=== PATIENT | male | born 1960 | race Caucasian/White ===

== ENCOUNTER 2018-12-16 00:30 | Inpatient (IN) ==
[2018-12-16] MEDS ORDERED: Ipratropium/Albuterol Neb 3 ML IH PRN (03:54)
--- NOTE | 2018-12-16 04:33 | Internal Med History&Physical ---
Date of Encounter: 12/16/18 Time of Encounter: 04:32 Internal Medicine - H&P: HPI Chief complaint: sob Admitted From: Home Plans for Post Hospital Care: Home History of present illness: Tres Crowley is a 58 year old man with hypertension and coronary artery disease who reports previous stent placement presented to [facility] emergency room complaining of increasing shortness of breath over one week, dyspnea on exertion, orthopnea, leg edema and also stating his noticing his face was more swollen. He says he had been unable to catch his breath and could not lay flat. He also had some chest tightness. In the ER he was hemodynamically stable. Chest x-ray as reviewed by me showed significant pulmonary vascular congestion. BNP was >1500, troponin 0.08 and D-dimer 728 (age adjusted cutoff is 600). He was given a dose of furosemide with subsequent diuresis and improvement in his breathing. There was also a desire to perform a CT however he could not lay supine due to dyspnea so received 1 dose of enoxaparin. He was transferred here for further care. Vitals: Reviewed General: Well-appearing, NAD Skin: Warm and dry. HEENT: Moist mucous membranes. No conjunctivae pallor. Neck: No lymphadenopathy. No JVD. No carotid bruits. No palpable thyroid. Chest: Normal thoracic expansion. Reduced breath sounds. Heart: Normal S1 & S2; rhythmic. No rubs or murmurs. Abdomen: Non-distended, soft and non-tender to palpation. No peritoneal reaction. Extremities: No clubbing, cyanosis. Trace edema. No calf tenderness. Normal distal pulses. Neurological: Awake, alert and oriented to person, place and time. No focal deficits. Psych: Affect appropriate. Assessment/Plan 1. Respiratory distress: Signs and symptoms are suggestive of new-onset acute systolic heart failure given the increasing BURROWS, orthopnea, reduced exercise tolerance, reports of peripheral swelling and the noted pulmonary vascular congestion. It also goes in line with the significantly elevated BNP. Will place on furosemide 40mg BID, start low dose BB/ACEI and obtain an echo for evaluation. Unlikely to be pulmonary embolism given the buildup of symptoms and barely higher than cutoff dimer level. In any case the echo will give us a window to evaluate for right heart strain which would suggest it until he is able to lay supine for a CT if subsequently deemed necessary. 2. Troponin elevation: likely secondary to myocardial strain. No acute clinical or electrocardiographic signs of ACS. Will continue to monitor trend. 3. CAD: Reported history but he does not know what medications he takes at home. Will place him on aspirin and statin therapy. Monitor on telemetry. 4. Tobacco use: 5 minutes were spent counseling and educating the patient on this habit. manager managed backup services and resources were made available. Past Med Surg Social Fam HX - Past Medical History Medical history: coronary artery disease, hypertension Psychiatric history: anxiety - Past Surgical History Surgical History: angioplasty/stent, orthopedic, other (Cervical fusion) Additional surgical history: spine sx, stents - Social History Smoking Status: Current every day smoker Smokeless Tobacco Status: No Alcohol use: occasionally Drug use: none Internal Medicine - H&P: Meds Unable To Obtain [Unable to Obtain] 12/16/18 [History] Allergy/AdvReac Type Severity Reaction Status Date / Time No Known Allergies Allergy Verified 12/16/18 03:33 All Systems PM: A 10-system review of systems was performed and is negative for pertinent findings except as documented above in the HPI. Family history reviewed and found non-contributory. - Constitutional Vitals: Temp Pulse Resp BP Pulse Ox 97.9 F 89 18 148/90 95 12/16/18 04:01 12/16/18 04:01 12/16/18 04:01 12/16/18 04:01 12/16/18 04:01 Exam: . - Time Spent With Patient Total time spent is greater than 50% in coordination of care (as documented) at patient's floor/unit and/or counseling patient: Greater than 35 minutes
[2018-12-16] MEDS: *HR* Heparin 5,000 UNIT/ML VIAL SQ SCH ×3 (06:26→22:01)
[2018-12-16] MEDS ORDERED: Furosemide 40 MG/4 ML VIAL IVP SCH (09:00)
[2018-12-16] MEDS: Aspirin 81 MG TAB.CHEW PO SCH (09:28)
[2018-12-16 10:35] LABS: Heparin anti-factor XA UFH 0.26 IU/mL (0.30-0.70); INR 1.1; Prothrombin Time 12.1 Seconds (9.4-12.1)
[2018-12-16 10:38] LABS: Activated Partial Thrombo Time 37.8 Seconds (26.0-36.0)
--- NOTE | 2018-12-16 11:23 | Event Note ---
Date of Encounter: 12/16/18 Time of Encounter: 09:30 H&P reviewed. 58-year-old male with history of CAD status post PCI and hypertension was admitted for decompensated heart failure. No prior echo on system hence unable to tell whether it is systolic or diastolic. Also had minimally elevated troponin of 0.08 on presentation without EKG changes. Symptomatically better after IV Lasix, will continue IV diuretics, ASA, statin, bb, and check echocardiogram. Repeat troponin to ensure no ACS.
--- NOTE | 2018-12-16 12:58 | Electrocardiograph Report ---
[address] [place], [place] [address] Test Date: 2018-12-16 Pat Name: Tres Crowley Department: 112 Room: 2A62 Gender: M Supervisor Mapping: : 1960 Requested By: Priscila Elabor Order Number: [id number] Reading MD: Linda Hu Measurements Intervals [place] Rate: 90 P: 44 WV: 158 QRS: 67 QRSD: 114 T: 36 QT: 365 QTc: 413 Interpretive Statements SINUS RHYTHM WITH OCCASIONAL SUPRAVENTRICULAR PREMATURE COMPLEXES POSSIBLE LEFT ATRIAL ENLARGEMENT POSSIBLE INFERIOR MYOCARDIAL INFARCTION, PROBABLY OLD ANTEROSEPTAL MYOCARDIAL INFARCTION, OF INDETERMINATE AGE Electronically Signed On 12-16-2018 12:57:04 EDT by Linda Hu
[2018-12-16] MEDS: Acetaminophen 325 MG TABLET PO PRN (13:26)
[2018-12-16] MEDS ORDERED: Perflutren Lipid Microsphere 1.3 ML in 0.9 % Sodium Chloride 8.7 ML IVP ONE (13:52)
[2018-12-16] MEDS: Furosemide 40 MG/4 ML VIAL IVP SCH (16:57)
[2018-12-17] MEDS: *HR* Heparin 5,000 UNIT/ML VIAL SQ SCH ×3 (05:30→21:56)
[2018-12-17] MEDS: Aspirin 81 MG TAB.CHEW PO SCH (07:53)
[2018-12-17] MEDS: Acetaminophen 325 MG TABLET PO PRN (07:53)
[2018-12-17] MEDS: Furosemide 40 MG/4 ML VIAL IVP SCH ×2 (07:54→17:18)
--- NOTE | 2018-12-17 09:21 | Cardiology Consult Note ---
Date of Encounter: 12/17/18 Time of Encounter: 08:30 Assessment and Plan (1) Congestive heart failure Current Visit: Yes Status: Acute Acute systolic CHF exacerbation; patient describes NYHA class III-IV symptoms. Chronicity unclear. Significant symptom relief with IV lasix given in ED. TTE this admission shows LVEF 15-20% with severely dilated LV, severe global LV systolic dysfunction, moderate LVDD, and normal RV structure and function. TTE 08/2010--EF 50%. CXR demonstrated CHF, BNP 1556. Hx of CAD s/p PCI, poor outpatient follow-up. Recommend [facility] with possible PCI to r/o ischemic etiology, A/R/B discussed, he is agreeable to proceed. Change lopressor to Toprol XL, continue IV lasix. Add ACEi/ARB by discharge. Cardiac rehab. Continue IV lasix. Strict I&Os, daily weights, Na/fluid restricted diet. Will continue to follow. Qualifiers: Heart failure type: systolic Heart failure chronicity: acute Qualified Code(s): I50.21 - Acute systolic (congestive) heart failure (2) CAD (coronary artery disease) Current Visit: Yes Status: Acute Hx of CAD s/p PCI, >10 years ago. Plan as above, continue asa, statin, and BB. Qualifiers: Coronary Disease-Associated Artery/Lesion type: [place] artery [place] vs. transplanted heart: [place] heart Associated angina: without angina Qualified Code(s): I25.10 - Atherosclerotic heart disease of [place] coronary artery without angina pectoris (3) Elevated troponin I level Current Visit: No Status: Acute Mild, adynamic troponin elevation in the setting of acute CHF; suspect secondary to demand ischemia. Chest pain free upon exam. Continue asa, statin, and BB. Plan as above. Discussion w patient/family: The assessment and plan as outlined above was discussed with the patient and/or family members who expressed understanding and agreement. All questions were answered. Thank you for involving us in the care of your patient. Please call with any questions. The patient will be discussed and reviewed with Dr. Casillas; changes to be made accordingly. History of Present Illness Consult date: 12/17/18 Requesting physician: Brien Kang Consult reason: CHF Chief complaint: shortness of breath History of present illness: Mr. Crowley is a 58 year old male with PMHx significant of CAD s/p PCI, tobacco use, HLD, and HTN who presented to the ED 1 week history of worsening shortness of breath, weight gain, and increase in abdominal girth. Notes mild BLE edema. Upon arrival to [facility] ED he was given IV lasix which significantly improved symptoms. He was then transferred to [facility] for further evaluation. CXR demonstrated CHF, BNP 1556, and troponin was elevated at 0.08. Non-specific ECG changes noted. He has had poor outpatient follow-up with PCP and Cardiology, home medications are unclear. Upon exam he is lying flat and is chest pain free. He reports episode of chest discomfort--left sided, non-radiating--that lasted ~1 hr and resolved without intervention that occurred in the past month. Prior CV testing: TTE 08/2010: EF 50%, mildly dilated LV Past Med Surg Social Fam HX - Past Medical History Attestation: Yes The following information was validated with the patient. Source: patient Medical history: coronary artery disease, hyperlipidemia, hypertension Psychiatric history: anxiety - Past Surgical History Surgical History: angioplasty/stent, orthopedic, other Additional surgical history: spine sx, stents - Social History Smoking Status: Current every day smoker Packs per day: 1-2 Smokeless Tobacco Status: No Alcohol use: occasionally Drug use: none - Family History Father Living Status: Age at : 57 Cause of : ND Hx Family Cardiac Disorders: Yes (ND) Hx Family Cancer: Yes (melanoma) Mother Living Status: Hx Family Neurologic Disorders: Yes ([place]) Medications and Allergies Unable To Obtain [Unable to Obtain] 12/16/18 [History] Allergy/AdvReac Type Severity Reaction Status Date / Time No Known Allergies Allergy Verified 12/16/18 03:33 All Systems Review: The remainder of the systems were reviewed and are negative - Cardiovascular Cardiovascular: as per HPI Physical Examination Vital Signs, Last 4 Hours Temp Pulse Resp BP Pulse Ox 12/17/18 07:16 97.6 F 97 18 128/86 95 General: Conversant, No Apparent Distress HEENT: Atraumatic, Normocephaly, Mucus Membranes Moist Neck: No JVD, Normal carotid pulses Cardiac: Reg Rate and Rhythm, Normal S1 and S2, No Murmur Lungs: Other (Scattered rhonchi) Neuro: Alert and responsive, No focal deficits noted Abdomen: Soft, Non-Tender Skin: No rashes noted on visualized skin Musculoskeletal: No Chest Wall Tenderness Extremities: No Clubbing, No Cyanosis, No Edema, Normal Pulses Results Lab Results 12/16/18 12/16/18 09:44 09:44 INR 1.1 APTT 37.8 H Troponin I 0.07 H* Active Medications Acetaminophen (Tylenol) 650 mg PO Q6HR PRN PRN Reason: mild pain/fever Stop: 06/17/19 11:58 Last Admin: 12/17/18 07:53 Dose: 650 mg Documented by: Albuterol/Ipratropium (Duoneb) 3 ml IH [id number] PRN PRN Reason: Shortness Of Breath/Wheezing Stop: 06/17/19 03:55 Aspirin (Aspirin) 81 mg PO DAILY ALESHIA Stop: 06/17/19 09:01 Last Admin: 12/17/18 07:53 Dose: 81 mg Documented by: Atorvastatin Calcium (Lipitor) 40 mg PO HS ALESHIA Stop: 06/17/19 21:01 Last Admin: 12/16/18 22:00 Dose: 40 mg Documented by: Furosemide (Lasix) 40 mg IVP BIDDIURETIC ALESHIA Stop: 06/17/19 17:01 Last Admin: 12/17/18 07:54 Dose: 40 mg Documented by: Heparin Sodium (Porcine) (Heparin) 5,000 unit SQ Q8HCO ALESHIA Stop: 06/17/19 06:01 Last Admin: 12/17/18 05:30 Dose: 5,000 unit Documented by: Metoprolol Succinate (Toprol Xl) 25 mg PO DAILY ALESHIA Stop: 06/19/19 09:01 Metoprolol Tartrate (Lopressor) 12.5 mg PO BID ALESHIA Stop: 12/17/18 23:00 Last Admin: 12/17/18 07:54 Dose: 12.5 mg Documented by: - Imaging and Cardiology Echo: report reviewed Other Results: 12 hour tele: avg HR=88 SR. NSVT noted, max 4 beats - EKG Interpretation EKG results cardiology: personally reviewed Consult Discharge Plan - Plan Referrals: NONE,PCP [Primary Care Provider] -
[2018-12-17] MEDS ORDERED: 0.9 % Sodium Chloride 1,000 ML ONE (10:55)
[2018-12-17] MEDS ORDERED: *HR* Heparin 10,000 UNIT/10 ML VIAL ONE (10:56)
[2018-12-17] MEDS ORDERED: ISOVUE-370 200 ML INFUS..BTL ONE (10:56)
[2018-12-17] MEDS ORDERED: Nitroglycerin 1,000 MCG/10 ML VIAL IV ONE (10:56)
[2018-12-17] MEDS ORDERED: Heparin 1,000 UNITS/500 mL 500 ML ONE (10:56)
[2018-12-17] MEDS ORDERED: *HR* Midazolam HCl 2 MG/2 ML VIAL ONE (11:08)
[2018-12-17] MEDS ORDERED: *HR* FentaNYL (PF) 100 MCG/2 ML VIAL ONE (11:08)
--- NOTE | 2018-12-17 11:16 | Pre-Sedation Evaluation ---
Pre-sedation evaluation - Pre-sedation checklist Date of procedure: 12/17/18 Procedure: cardiac cath Recent Vitals: Last Vital Signs Temp 97.6 F 12/17/18 07:16 Pulse 97 12/17/18 07:16 Resp 18 12/17/18 07:16 BP 128/86 12/17/18 07:16 Pulse Ox 95 12/17/18 07:16 H&P (including ROS) documented in medical record: Yes Previous reaction to sedatives/anesthetics: No Dietary Status: NPO after Midnight ASA Classification *see protocol: CLASS II-Mild systemic disease Cardiac Registry (Cardio Only) - Functional Capacity Functional Capacity: >=4 METS without symptoms - Clincal Frailty Scale Clinical Frailty Scale: Managing Well
--- NOTE | 2018-12-17 12:20 | Invasive Diagnostic Lab Proc ---
Name: Tres Crowley Date of Study: 12/17/2018 Date: 1960 Ht: 66.9in Medical Record#: [id number] Age: 58 Wt: 149.91lb Gender: Male BSA: 1.79 Order #: [id number] BMI: 23.53 Physicians Procedure Physician: Edith Escalona MD Referring MD: Referring MD: Staff Name Position Time In Neftali Wesley RN Monitor 11:04 AM Manfred Kern RT (R) Scrub 11:04 AM Linda Abdullahi RT (R) Scrub 11:05 AM Pablo Robertson RN Nurse 11:06 AM Jolynn Duckworth RT RT 11:07 AM Procedures Performed Procedure L HRT ARTERY/VENTRICLE ANGIO Pre-Procedure Checklist Informed consent is complete signed and on chart. H&P is on chart. ID band is on and ID verified with patient. Patient NPO for procedure The procedure was described for the patient and questions were answered. ECG is on chart. Plan of Care Patient will tolerate the procedure without complications. Adequate level of comfort will be maintained. Hemodynamics will remain stable Patient will recover from procedure without complications. Respiratory function will be maintained. Cardiac rhythm will remain stable. Patient temperature will be maintained. Patient and/or family have verbalized understanding of the procedure. Patient Education Chief Complaint/Reason for Test: Cardiac Cath Developmental Category: Adult (18-64 years) Developmentally Appropriate for Age: Yes Learning Barriers: None Education Needs: Procedure Education Method: Verbal Information Taught: Cardiac Cath Educational Evaluation: Able to repeat information Intravenous Access Time IV Size Location DC'd Fluid/Drip Rate Units RN 20g 1 07/25" Patent On Arrival 0.9NaCl ml/hr Allergies NKDA No Known Allergies Vital Signs Time BP (mmHg) HR (bpm) O2 Sat. RR (bpm) LOC 11:05 AM / % 5 = Fully awake and oriented or at pre-proc level 11:05 AM / % 4 = Oriented but drowsy 11:08 AM 137 / 87 82 92 % 11:13 AM 119 / 91 82 97 % 20 11:18 AM 124 / 89 73 95 % 18 11:23 AM 108 / 62 82 93 % 29 11:28 AM 112 / 83 83 92 % 15 11:33 AM 124 / 85 82 93 % 14 11:42 AM 122 / 86 81 93 % 16 5 = Fully awake and oriented or at pre-proc level 12:00 PM 117 / 80 82 93 % 16 5 = Fully awake and oriented or at pre-proc level Procedural Medications Time Medication Dose Units Method Given By 11:06 AM Oxygen 2 L/min nasal cannula Sparkle Sánchez RN 11:09 AM Versed 1 mg Intravenous Sparkle Sánchez RN 11:09 AM Fentanyl 50 mcg Intravenous Sparkle Sánchez RN 11:20 AM Lidocaine 2% 10 ml Subcutaneous Edith Escalona MD ASA Classification: CLASS II- Mild systemic disease (i.e. well-controlled diabetes, hypertension, asthma, cigarette smoking) [place] Score Preprocedure Postprocedure Activity 2- Moves 4 extremities sustained head lift Activity 2- Moves 4 extremities sustained head lift Circulation 2- SBP +/= 20 points of pre-anesthetic level Circulation 2- SBP +/= 20 points of pre-anesthetic level Consciousness 2- Awake and alert oriented x 3 Consciousness 2- Awake and alert oriented x 3 O2 Saturation 2- Able to maintain O2 satruation of 92% on room air O2 Saturation 2- Able to maintain O2 satruation of 92% on room air Respiratory 2- Able to deep breathe and cough well Respiratory 2- Able to deep breathe and cough well Total Score 10 Total Score 10 Contrast Agent: Isovue Diagnostic Contrast: 41 ml Total Contrast: 41 ml Fluoro Dose: 22 mGy Procedure Log Time Note Enter By 11:00 AM CathStat 11:04 AM Pt arrived to pharmaceutical laboratory technician 2 at 11:04 oparker 11:04 AM Wesley Lindsay RN Position: Monitor Time in: 11:04 oparker 11:04 AM Manfred Kern RT (R) Position: Scrub Time in: 11:04 oparker 11:05 AM Physician arrived 11:05 oparker 11:05 AM Corbin completed oparker 11:05 AM Sign in performed according to hospital policy. Informed consent was obtained. oparker 11:05 AM Procedure start 11:05 oparker 11:05 AM Patient charges- Angio tray pack, Navilyst 3mm J, Pulse Oximetry and ACIST tubing and transducer oparker 11:05 AM Time: 11:05 Patient comfortable and pain free: Yes oparker 11:05 AM Time: 11:05LOC: 5 = Fully awake and oriented or at pre-proc level oparker 11:05 AM Linda Abdullahi RT (R) Position: Scrub orientee Time in: 11: oparker 11:06 AM Pablo Robertson RN Position: Nurse Time in: 11: oparker 11: AM Time: 11:06 Oxygen on at 2 L/min per nasal cannula by Sparkle Sánchez RN oparker 11:07 AM Jolynn Duckworth RT Position: RT Time in: : oparker 11:07 AM Hair removed from procedure site in holding area using clippers. Bilateral groin prepped with Chloraprep by Jolynn Duckworth RT, then patient was draped. Skin intact. oparker 11: AM Vitals capture started with the following parameters, Patient=Adult, Interval=5 min, Initial Qazdlebp=474 mmHg, Deflation Rate=5 mmHg, Cuff placed on Left Arm 11: AM Recorded ECG: HR=86 Condition=Condition 1 11:08 AM HR=82 bpm, ULCV=723/87 mmhg, SpO2=92.0 %, Comment=NSR 11: AM Time: 11: Versed 1 mg Intravenous Given by Sparkle Sánchez RN oparker 11: AM Time: 11:09 Fentanyl 50 mcg Intravenous Given by Sparkle Sánchez RN oparker 11:13 AM HR=82 bpm, RRTR=229/91 mmhg, SpO2=97.0 %, Resp=20 B/min, EtCO2=33 mmHg, Comment=NSR 11:15 AM Pressure channel 1 zeroed. 11:18 AM HR=73 bpm, JNKD=525/89 mmhg, SpO2=95.0 %, Resp=18 B/min, EtCO2=32 mmHg, Comment=NSR 11:18 AM ASA Class CLASS II- Mild systemic disease (i.e. well-controlled diabetes, hypertension, asthma, cigarette smoking) oparker 11:19 AM Time out was performed according to hospital policy. Conscious sedation and anesthesia was achieved (see medication log with in this report above) oparker 11:20 AM Time: 11:05LOC: 4 = Oriented but drowsy oparker 11:20 AM Time: 11:05 Patient comfortable and pain free: Yes oparker 11:20 AM Time: 11:20 10 ml Lidocaine 2% to right groin Subcutaneous Given by Edith Escalona MD oparker 11:20 AM Micro-Introducer Kit utilized for sheath placement oparker 11:21 AM Pressure channel 1 zeroed. 11:23 AM Access obtained by percutaneous puncture. 6Fr 10cm Terumo [place] sheath placed in right Femoral artery. [id number] oparker 11:23 AM HR=82 bpm, UUCR=851/62 mmhg, SpO2=93.0 %, Resp=29 B/min, EtCO2=11 mmHg, Comment=NSR 11:23 AM 0.035 145cm Navilyst 3mmJ wire [id number] oparker 11:23 AM 5Fr FR 4 catheter inserted over the wire DNC oparker 11:24 AM RCA angiography performed in multiple views. oparker 11:25 AM Recorded Pressure: Ao, HR=84, Condition=Condition 1 (Aorta) Ao 102/73/86 11:26 AM Catheter removed oparker 11:27 AM 5Fr FL 4 catheter inserted over the wire DN oparker 11:27 AM LCA angiography performed in multiple views. oparker 11:27 AM Recorded Pressure: Ao, HR=84, Condition=Condition 1 (Aorta) Ao 101/76/87 11:28 AM HR=83 bpm, UBZE=781/83 mmhg, SpO2=92.0 %, Resp=15 B/min, EtCO2=26 mmHg, Comment=NSR 11:29 AM Catheter removed oparker 11:30 AM Catheter crossed the aortic valve and was selectively placed in the left ventricle. Pressures recorded on pullback for left heart catheterization. oparker 11:31 AM Recorded Pressure: Ao, HR=82, Condition=Condition 1 (Aorta) Ao 102/10/50 11:31 AM Recorded Pressure: LV, HR=80, Condition=Condition 1 (Left Ventricle) LV 108/18/22 11:32 AM 5Fr Pigtail catheter inserted over the wire DNC oparker 11:32 AM Catheter removed oparker 11:32 AM Wire removed oparker 11:33 AM Procedure completed at 11:33 12/17/2018 oparker 11:33 AM Did you address KAHLIL flow and Dominance? YesCoronary Dominance: right oparker 11:33 AM HR=82 bpm, CWTB=461/85 mmhg, SpO2=93.0 %, Resp=14 B/min, Comment=NSR 11:33 AM Sign out completed: Radiation Dose 171.59 mGy, 22.2 Gy/cm2 Fluoro Time: 2.3 Isovue 370 - 200ml contrast 41 ml given by Edith Escalona MD. Complications: None. 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 Sedation minutes 24. Cardiac Rehab Consult needed: No. Confirmed administered medications: Yes oparker 11:34 AM Conversation between Interventionalist and CT Surgeon. oparker 11:35 AM Sheath left in place to be pulled on floor/holding areaV+Pad oparker 11:35 AM Estimated Blood Loss: minimal oparker 11:35 AM Post ECG NSR oparker 11:35 AM Post Blood Pressure 124/85 oparker 11:35 AM 11:35 Post Pulses Bilateral DP 2+ oparker 11:36 AM Information taught Cardiac Cath oparker 11:36 AM Education needs Procedure, Plan of Care, and Disease Process oparker 11:36 AM Learning barriers :None oparker 11:36 AM Education Methods Verbal oparker 11:36 AM Education evaluation Able to repeat information oparker 11:36 AM Site status No bleeding/hematoma - Rt Groin as reported by Manfred Kern RT (R) at 11:36 oparker 11:36 AM Opsite applied oparker 11:36 AM Family placed in consult room. oparker 11:38 AM Report given to Denzel DELA CRUZ Pt taken to Holding room Room #4. 11:38 oparker 11:38 AM Patient out of room: 11:38 oparker 11:39 AM Lesion found in Distal LMCA. Pre Stenosis: 55 Pre KAHLIL Flow: oparker 11:39 AM Lesion found in Proximal LAD. Pre Stenosis: 100 Pre KAHLIL Flow: oparker 11:39 AM Lesion found in Mid LAD. Pre Stenosis: 100 Pre KAHLIL Flow: oparker 11:39 AM Lesion found in Mid Circumflex. Pre Stenosis: 20 Pre KAHLIL Flow: oparker 11:39 AM Left Main Coronary Artery with 55% stenosis oparker 11:40 AM Proximal Left Anterior Descending Coronary Artery with 100% stenosis. If graft is supplying this territory, 0 % stenosis. oparker 11:40 AM Mid/Distal Left Anterior Descending Coronary Artery and diagonal branches with 100% stenosis. If graft is supplying this area, 0 % stenosis oparker 11:40 AM Circumflex, Obtuse Marginal, Left Posterior Descending, and Left Posterolateral Coronary Arteries with 20 % stenosis. If graft is supplying this area, 0 % stenosis yola 11:53 AM Marta Tolbert RT at bedside. Right femoral artery sheath pulled. Manual pressure being held with Vpad. kwramsey 12:08 PM Hemostasis obtained to right femoral artery. Dressing applied with Vpad. Patient instructed on post sheath pull. Patient verbalized understanding. kwramsey 12:09 PM Delay to floor Bed availability kwitte 12:10 PM Report given to Margoth DELA CRUZ Pt taken to Holding room Room #2a62. 12:10 kwitte 12:10 PM Complications: None kwitte 12:10 PM Patient out of room: 12:10 kwramsey Complications Complication None None Hemodynamics Pressures Site Systolic/A Wave Diastolic/V Wave Mean AO 102 73 86 AO 101 76 87 AO 102 10 50 LV 108 18 22 Post Procedure Information Blood Pressure: 124/85 mmHg Rhythm: NSR Post procedural instructions were given Surgery consult for CABG Closure Device Time Device Success/Fail Manual Compression Site Checks Time Location Status Staff Sheath In? Note 11:36 AM Rt Groin No bleeding/hematoma Manfred Kern RT (R) Yes 11:44 AM Rt Groin No bleeding/ No Hematoma Denzel Ariza RN Yes 12:00 PM Rt Groin No bleeding/ No Hematoma Denzel Ariza RN Pulses Time Site Pre-Procedure Post-Procedure Note Bilateral DP & PT 2+ Bilateral radial 2+ 11:35:00 AM Bilateral DP 2+ 12/17/2018 11:42:00 AM Bilateral DP 2+ 12/17/2018 12:00:00 PM Bilateral DP 2+ Updated by Denzel Ariza RN on 12/17/2018 12:11:32 PM Denzel Ariza RN electronically signed on 12/17/2018 12:12:06 PM with status of Final
--- NOTE | 2018-12-17 14:10 | Internal Med Progress Note ---
Hospitalist Progress Note - Encounter Date of Encounter: 12/17/18 Time of Encounter: 14:08 - Subjective Interval History: Patient seen and examined at bedside. Patient states that he feels good today. He denies any symptoms. He is chest pain-free. Denies any shortness of breath. - Exam Vitals: Temp Pulse Resp BP Pulse Ox 97.6 F 97 18 128/86 95 12/17/18 07:16 12/17/18 07:16 12/17/18 07:16 12/17/18 07:16 12/17/18 07:16 Exam: Gen.: Oriented 3, no acute distress Heart: Regular rate and rhythm, no murmurs, rubs, gallops Lungs: Clear to auscultation bilaterally, no rales, rhonchi, wheezes - Assessment and Plan (1) Acute systolic heart failure Current Visit: Yes Status: Acute Assessment and Plan: Echocardiogram reviewed that shows EF of 15-20%. Appreciate cardiology consultation and patient underwent left heart catheter today that found signi ficant coronary artery disease, likely cause of patient's systolic heart failure. Beta osito started, patient will require claudine inhibitor/ARB at discharge. Continue IV Lasix at 40 mg twice a day. (2) CAD (coronary artery disease) Current Visit: Yes Status: Acute Assessment and Plan: Patient underwent left heart catheterization today, final report pending but did discuss with cardiology who feeling patient may need CABG. Cardiothoracic surgery consult pending. Chest pain-free at this time. (3) DVT prophylaxis Current Visit: Yes Status: Acute Assessment and Plan: Heparin 5000 units subcutaneous every 8 hours. - Time Spent with Patient Total time spent is greater than 50% in coordination of care (as documented) at patient's floor/unit and/or counseling patient: Internal Medicine: Result - ABG Interpretation ABG results: PT/INR, D-dimer PT 12.1 Seconds (9.4-12.1) 12/16/18 09:44 - Impressions Impressions Echocardiogram 12/16/18 03:52 Impressions: LVEF 15-20%. Severely dilated left ventricle. Severe global left ventricular systolic dysfunction. Moderate left ventricular diastolic dysfunction. There is no LV thrombus. Normal right ventricular structure and function. Mild-moderate mitral regurgitation. Mild pulmonary hypertension. Left Ventricular Wall Motion: Rest Echo Findings The apex, apical inferior, mid inferior, basal inferior, apical anterior, mid anterior, basal anterior, apical septal, mid inferior septal, basal inferior septal, apical lateral, mid anterior lateral, basal anterior lateral, mid anterior septal, mid inferior lateral, basal anterior septal and basal inferior lateral sanderson were hypokinetic. Findings: Study Quality * Technically adequate exam. ECG Findings * Normal sinus rhythm. Left Ventricle * LVEF 15-20%. * Severely dilated left ventricle. * Severe global left ventricular systolic dysfunction. * Moderate left ventricular diastolic dysfunction. * There is no LV thrombus. Right Ventricle * Normal right ventricular structure and function. Left Atrium * Moderately dilated left atrium. Right Atrium * Mildly dilated right atrium. Interatrial Septum * Interatrial septum not well evaluated. Aortic Valve * Mildly sclerotic aortic valve leaflets. * No aortic regurgitation. * No aortic stenosis. Mitral Valve * Mildly thickened mitral valve leaflets. * Mild-moderate mitral regurgitation. * No mitral stenosis. Tricuspid Valve * Normal tricuspid valve structure and function. * Trace tricuspid regurgitation. * Mild pulmonary hypertension. Pulmonic Valve * Pulmonic valve is not well visualized. * Trace pulmonic regurgitation. Aorta * Normally sized aortic root. Pericardium * The pericardium appears normal. IVC * Normal IVC dimensions and inspiratory collapse. Pulmonary Artery * Pulmonary artery not well visualized. Consult Discharge Plan - Plan Referrals: NONE,PCP [Primary Care Provider] - (2) CAD (coronary artery disease) Qualifiers: Coronary Disease-Associated Artery/Lesion type: [place] artery [place] vs. transplanted heart: [place] heart Associated angina: without angina Qualified Code(s): I25.10 - Atherosclerotic heart disease of [place] coronary artery without angina pectoris
--- NOTE | 2018-12-17 14:18 | Cardiothoracic Consult Note ---
Date of Encounter: 12/17/18 Time of Encounter: 14:01 Assessment and Plan (1) CAD (coronary artery disease) Current Visit: Yes Status: Acute The patient is a 58-year-old hypertensive man with hypercholesterolemia known CAD was transferred to [facility] from [facility] with a diagnosis of congestive heart failure. He underwent a transthoracic echocardiogram which revealed an LVEF 15-20% with severe left ventricular dilatation and severe left ventricular systolic dysfunction. Cardiac catheterization revealed severe 3 vessel CAD. In particular, the patient has a 50-60% distal left main lesion, a completely occluded proximal LAD which fills distally via left to left collaterals, a 20-30% mid LCx lesion, and a completely occluded proximal RCA which fills distally via [id number] collaterals. He has been recommended for possible high risk CABG. The patient should undergo myocardial viability study to determine whether the anterior wall would benefit from revascularization. If the patient has viable myocardium and is a surgical candidate, he should undergo his procedure at the [facility] in case the patient needs left ventricular assist postoperatively. The assessment and plan as outlined above was discussed with the patient and/or family members who expressed understanding and agreement. All questions were answered. Qualifiers: Coronary Disease-Associated Artery/Lesion type: [place] artery [place] vs. transplanted heart: [place] heart Associated angina: without angina Qualified Code(s): I25.10 - Atherosclerotic heart disease of [place] coronary artery without angina pectoris - History of Present Illness Consult date: 12/17/18 Requesting physician: Edith Escalona Consult reason: CABG evaluation Chief complaint: Shortness of breath, dyspnea on exertion, lower extremity edema History of present illness: Mr. Crowley is a 58 year old hypertensive man with hypercholesterolemia and known CAD. His cardiac history dates back to which time he suffered a myocardial infarction and required PCI with coronary stent placement (unknown vessels). He did well during the ensuing years, but would occasionally experience exertional, nonradiating substernal chest pain and shortness of breath. He is not medically compliant and has not seen a physician and several years. During the last 1-2 weeks however, he has had progressive shortness of breath, dyspnea exertion, and lower extremity edema. He awoke one morning with extensive facial swelling and was evaluated at [facility]. During the evaluation he was noted to have elevated BNP levels and a chest x-ray which showed increased pulmonary vascularity consistent with congestive heart failure. He was treated medically and transferred to [facility] for further care. The patient underwent a transthoracic echocardiogram yesterday which revealed an LVEF 15-20% with a severely dilated left ventricle. Mild to moderate mitral regurgitation was also noted as was mild pulmonary hypertension. He underwent cardiac catheterization today and was found to have severe 3 vessel CAD. In particular, the patient has a 50-60% distal left main lesion, a completely occluded proximal LAD which fills distally via left to left collaterals, a 20- 30% mid LCx lesion, and completely occluded proximal RCA which fills distally via [id number] collaterals. I have been asked to evaluate the patient for possible high risk CABG. Past Med Surg Social Fam HX - Past Medical History Medical history: CHF, coronary artery disease, hyperlipidemia, hypertension, peripheral artery disease Psychiatric history: anxiety - Past Surgical History Surgical History: angioplasty/stent, appendectomy, orthopedic, other (Right wrist ORIF) Additional surgical history: spine sx, stents - Social History Smoking Status: Current every day smoker Packs per day: 2PPD x 45YRS Smokeless Tobacco Status: No Alcohol use: occasionally Drug use: none Occupational status: unemployed Current living situation: Home - Independent Activity Level: Independent ambulation Recent Out of Country Travel Within the Last 8 Weeks: No Exposure or Possible Exposure to Illness During Travel: No - Family History Father Living Status: Age at : 57 Cause of : [place] Hx Family Cardiac Disorders: Yes ([place]) Hx Family Cancer: Yes (melanoma) Mother Living Status: Hx Family Neurologic Disorders: Yes ([place]) Medications and Allergies Aspirin/Caffeine [Bc Powder Packet] 1 each PO BID PRN 12/17/18 [History] Allergy/AdvReac Type Severity Reaction Status Date / Time No Known Allergies Allergy Verified 12/16/18 03:33 All Systems Review: The remainder of the systems were reviewed and are negative Physical Examination General: Conversant, No Apparent Distress HEENT: Atraumatic Neck: No JVD Cardiac: Reg Rate and Rhythm, Normal S1 and S2, No Murmur Lungs: Normal Breath Sounds Neuro: Alert and responsive, No focal deficits noted, Motor nerves intact, Sensory nerves intact Vascular: Normal capillary refill Abdomen: Soft, Non-tender Skin: No rashes noted on visualized skin Musculoskeletal: No Chest Wall Tenderness Extremities: No Clubbing, No Cyanosis, No Edema Consult Discharge Plan - Plan Referrals: NONE,PCP [Primary Care Provider] -
[2018-12-17 15:06] LABS: BUN/Creatinine Ratio 20 (6-26); Blood Urea Nitrogen 17 mg/dL (8-23); Calcium 9.8 mg/dL (8.6-10.3); Carbon Dioxide 22 mEq/L (23-29); Chloride 101 mEq/L (98-107); Glucose 154 mg/dL (70-105); Magnesium 1.9 mg/dL (1.6-2.6); Osmolality,Calculated 287 (280-300); Potassium 4.3 mEq/L (3.5-5.1); Sodium 136 mEq/L (136-145); eGFR For Non-African Americans > 60 (> 60)
[2018-12-17 15:22] LABS: Basophils # 0.1 K/mcL (0.0-0.2); Basophils % 0.6 %; Eosinophils # 0.2 K/mcL (0.0-0.6); Eosinophils % 2.2 %; Hematocrit 47.9 % (37.5-50.1); Immature Granulocytes % 0.3 % (0-4); Lymphocytes # 2.2 K/mcL (0.6-4.6); Lymphocytes % 28.4 %; Mean Corpuscular HGB Conc 33.4 g/dL (31.6-35.5); Mean Corpuscular Hemoglobin 30.4 pg (28.0-33.3); Mean Corpuscular Volume 90.9 fL (83.0-100.0); Mean Platelet Volume 9.7 fL (9.4-12.4); Monocytes # 0.8 K/mcL (0.0-1.3); Monocytes % 9.5 %; Neutrophils # 4.6 K/mcL (1.6-8.9); Platelet Count 350 K/mcL (140-400); Red Blood Count 5.27 M/mcL (4.19-5.50); Red Cell Distribution Width 14.4 % (11.5-14.5)
[2018-12-18] MEDS: *HR* Heparin 5,000 UNIT/ML VIAL SQ SCH ×2 (06:42→13:46)
[2018-12-18 07:43] LABS: Basophils # 0.1 K/mcL (0.0-0.2); Basophils % 0.8 %; Eosinophils # 0.3 K/mcL (0.0-0.6); Eosinophils % 3.8 %; Hematocrit 47.2 % (37.5-50.1); Hemoglobin 15.7 g/dL (12.9-16.9); Immature Granulocytes % 0.3 % (0-4); Lymphocytes # 2.4 K/mcL (0.6-4.6); Lymphocytes % 27.3 %; Mean Corpuscular HGB Conc 33.3 g/dL (31.6-35.5); Mean Corpuscular Hemoglobin 30.3 pg (28.0-33.3); Mean Corpuscular Volume 91.1 fL (83.0-100.0); Mean Platelet Volume 9.4 fL (9.4-12.4); Monocytes # 0.9 K/mcL (0.0-1.3); Monocytes % 10.3 %; Platelet Count 342 K/mcL (140-400); Red Blood Count 5.18 M/mcL (4.19-5.50); Red Cell Distribution Width 14.3 % (11.5-14.5); Segmented Neutrophils % 57.5 %
[2018-12-18] MEDS: Aspirin 81 MG TAB.CHEW PO SCH (07:46)
[2018-12-18] MEDS: Furosemide 40 MG/4 ML VIAL IVP SCH ×2 (07:46→16:49)
[2018-12-18 07:51] LABS: BUN/Creatinine Ratio 26 (6-26); Blood Urea Nitrogen 22 mg/dL (8-23); Calcium 9.6 mg/dL (8.6-10.3); Carbon Dioxide 27 mEq/L (23-29); Chloride 103 mEq/L (98-107); Glucose 108 mg/dL (70-105); Magnesium 2.1 mg/dL (1.6-2.6); Osmolality,Calculated 288 (280-300); Sodium 137 mEq/L (136-145); eGFR For Non-African Americans > 60 (> 60)
[2018-12-18] MEDS ORDERED: Metoprolol XL (24 HR) Succ 25 MG TAB.ER.24H PO SCH (09:00)
--- NOTE | 2018-12-18 10:48 | Discharge Summary ---
- NOTES TO OUTPATIENT PROVIDER Notes to Outpatient Provider: severe 3 vessel disease with systolic dysfunction, needs eval for high risk cabg at [facility], cardiology is making arrangements for outpatient follow up, will discharge with lifevest Date of Encounter: 12/18/18 Time of Encounter: 10:43 - Discharge Diagnosis (1) Acute systolic heart failure Priority: Primary Status: Acute (2) CAD (coronary artery disease) Priority: Primary Status: Acute Qualifiers: Coronary Disease-Associated Artery/Lesion type: [place] artery [place] vs. transplanted heart: [place] heart Associated angina: without angina Qualified Code(s): I25.10 - Atherosclerotic heart disease of [place] coronary artery without angina pectoris Hospital course: Mr. Crowley is a 58 year old male with history of coronary artery disease presented with progressive shortness of breath and peripheral edema. Echocardiogram revealed a decreased EF of 15-20%. Patient underwent cardiac catheterization that revealed severe 3-vessel disease. Cardiothoracic surgery was consulted and they recommended that the patient be evaluated at [facility] for high risk CABG. Cardiology will make arrangements for the patient to be referred to [facility]. At the time of discharge patient was euvolemic and asymptomatic. He was no longer having shortness of breath. Patient will be given a LifeVest to be discharged home on will be discharged home in stable condition. It was discussed with the patient that he needs close outpatient follow-up at [facility] and he should return promptly if he has any symptoms. Patient verbalized understanding. Discharge discussed with: patient, family, nurse, surgical consultant - Time Spent with Patient Total time spent providing and/or coordinating discharge services: Time spent: Greater than 30 minutes (40 minutes) - Discharge Medications Prescriptions: New Aspirin 81 mg PO DAILY #30 tab.chew Furosemide [Lasix] 40 mg PO DAILY #30 tablet Atorvastatin [Lipitor] 40 mg PO HS #30 tablet Metoprolol XL (24 HR) Succ [Toprol Xl] 25 mg PO DAILY #30 tab.er.24h Lisinopril [Zestril] 5 mg PO DAILY #30 tablet Discontinued Aspirin/Caffeine [Bc Powder Packet] 1 each PO BID PRN PRN Reason: Pain Home Medications: Aspirin 81 mg PO DAILY #30 tab.chew 12/18/18 [Rx] Atorvastatin [Lipitor] 40 mg PO HS #30 tablet 12/18/18 [Rx] Furosemide [Lasix] 40 mg PO DAILY #30 tablet 12/18/18 [Rx] Lisinopril [Zestril] 5 mg PO DAILY #30 tablet 12/18/18 [Rx] Metoprolol XL (24 HR) Succ [Toprol Xl] 25 mg PO DAILY #30 tab.er.24h 12/18/18 [Rx] Allergies/Adverse Reactions: Allergy/AdvReac Type Severity Reaction Status Date / Time No Known Allergies Allergy Verified 12/16/18 03:33 Date of admission: 12/16/18 03:52 Primary care physician: PCP NONE Consults: 12/16/18 15:05 Consult to Cardiology [CONS] Routine Comment: Consulting Provider: Cardiology Lindsay Reason for Consult: new cardiomyopathy, EF 15-20% Call Completed: No 12/17/18 09:30 Consult to Cardiac Rehabilitation-Phase1 [CONS] Routine Comment: Reason for Consult: CHF Call Completed: No 12/17/18 14:29 Consult to Nurse Navigator [CONS] Routine Comment: chf Discharging clinician: Teddy Virgen Anticipated date of discharge: 12/18/18 - Constitutional Vitals: Temp Pulse Resp BP Pulse Ox 97.8 F 60 17 110/73 93 12/18/18 07:23 12/18/18 07:23 12/18/18 07:23 12/18/18 07:23 12/18/18 07:23 General appearance: Present: A&O X 3, pleasant, no acute distress Exam: . - Respiratory Respiratory exam: Present: CTAB. Absent: rales, rhonchi, wheezes - Cardiovascular Cardiovascular exam: Present: RRR. Absent: gallop, rubs, systolic murmur - GI/Abdominal GI/Abdominal exam: Present: normal bowel sounds, soft. Absent: distended, tenderness - Extremities Exam Extremities exam: Absent: pedal edema - Patient Status Disposition: Home, Self-Care Condition: Fair Functional capacity at discharge: independent ambulation Overall status at discharge: patient is progressing back to baseline - Discharge Instructions Follow Up With: NONE,PCP [Primary Care Provider] - (1 week) Additional Instructions: Please establish with a PCP within one week. Please follow-up with [facility] as scheduled. Please wear LifeVest as directed. Please take your medication as directed. Please return for any new or worsening symptoms. - Diet and Activity Activity: increase activity as tolerated Diet: low salt diet
[2018-12-18 11:41] VITALS: BP 107/74
--- NOTE | 2018-12-18 14:03 | Cardiology Progress Note ---
Date of Encounter: 12/18/18 Time of Encounter: 14:00 Assessment and Plan (1) Congestive heart failure Current Visit: Yes Status: Acute Acute systolic CHF exacerbation; patient describes NYHA class III-IV symptoms. Chronicity unclear. Significant symptom relief with IV lasix given in ED. TTE this admission shows LVEF 15-20% with severely dilated LV, severe global LV systolic dysfunction, moderate LVDD, and normal RV structure and function. TTE 08/2010--EF 50%. CXR demonstrated CHF, BNP 1556. Hx of CAD s/p PCI, poor outpatient follow-up. [facility] yesterday revealed severe 3VCAD. 50-60% distal left main lesion, occluded pLAD which fills distally via left to left collaterals, a 20-30% mid LCx lesion, and occluded pRCA which fills distally via [id number] collaterals. CT surgery consulted. They recommend he undergo myocardial viability study to determine whether the anterior wall would benefit from revascularization. If the patient has viable myocardium and is a surgical candidate, he should undergo his procedure at [facility] in case the patient needs left ventricular assist postoperatively. Discussed with Dr. Casillas. Can be done as outpt. Continue BB, ACEI, transitioned to PO Lasix. Right femoral access site healing well. No bleeding, hematoma or ecchymosis noted. Strict I&Os, daily weights, Na/fluid restricted diet. Discussed with Dr. Casillas. Recommend Lifevest prior to d/c, ordered. Okay to d/c home once lifevest is applied. Will set up referral to [facility] as outpt and coordinate outpt follow-up in 1-2 weeks. Qualifiers: Heart failure type: systolic Heart failure chronicity: acute Qualified Code(s): I50.21 - Acute systolic (congestive) heart failure (2) Elevated troponin I level Current Visit: No Status: Acute Mild, adynamic troponin elevation in the setting of acute CHF; suspect secondary to demand ischemia. Continue asa, statin, and BB. Plan as above. (3) CAD (coronary artery disease) Current Visit: Yes Status: Acute Hx of CAD s/p PCI, >10 years ago. [facility] yesterday severe 3V CAD with CT surgery consulted. Plan as above, outpt [facility] eval. Continue asa, statin, and BB. Qualifiers: Coronary Disease-Associated Artery/Lesion type: [place] artery [place] vs. transplanted heart: [place] heart Associated angina: without angina Qualified Code(s): I25.10 - Atherosclerotic heart disease of [place] coronary artery without angina pectoris Discussion w patient/family: The assessment and plan as outlined above was discussed with the patient and/or family members who expressed understanding and agreement. All questions were answered. Thank you for involving us in the care of your patient. Please call with any questions. I will discuss all the above with Dr. Casillas and make changes as necessary. Subjective Principal diagnosis: CHF, CAD Interval history: No acute complaints this AM. Denies chest pain or dyspnea. Objective Vital Signs, Last 4 Hours Temp Pulse Resp BP Pulse Ox 12/18/18 11:38 97.9 F 85 17 107/74 96 Vital Signs Temp Pulse Resp BP Pulse Ox 12/18/18 11:38 97.9 F 85 17 107/74 96 12/18/18 07:23 97.8 F 60 17 110/73 93 12/18/18 04:06 98 F 82 19 124/83 97 12/17/18 23:43 98.2 F 91 19 129/93 98 12/17/18 18:33 97.8 F 92 19 119/74 96 12/17/18 16:22 98.2 F 89 18 113/78 97 12/17/18 15:05 98.2 F 89 18 112/82 94 12/17/18 14:05 98.1 F 86 20 124/88 94 Intake and Output 12/17/18 12/18/18 12/18/18 23:59 07:59 15:59 Intake Total 0 240 Balance 0 240 Intake: Oral 0 / 240 Other: Weight 68 kg Patient Weight 12/18/18 23:59 Weight 68 kg General: Conversant, No Apparent Distress HEENT: Atraumatic, Normocephaly, Mucus Membranes Moist Neck: No JVD, Normal carotid pulses Cardiac: Reg Rate and Rhythm, Normal S1 and S2, No Murmur Lungs: Normal Breath Sounds, No Wheeze, Rales, Rhonchi Neuro: Alert and responsive, No focal deficits noted Abdomen: Soft, Non-Tender Skin: Other (right femoral access site healing well. No bleeding, hematoma or ecchymosis noted.) Musculoskeletal: No Chest Wall Tenderness Extremities: No Clubbing, No Cyanosis, No Edema, Normal Pulses Results 12/18/18 07:05 12/18/18 07:05 Lab Results 12/17/18 12/17/18 12/18/18 14:12 14:12 07:05 WBC 7.9 8.7 Hgb 16.0 D 15.7 Hct 47.9 47.2 Plt Count 350 342 Sodium 136 Potassium 4.3 Chloride 101 Carbon Dioxide 22 L BUN 17 Creatinine 0.84 Glucose 154 H Calcium 9.8 Magnesium 1.9 12/18/18 07:05 WBC Hgb Hct Plt Count Sodium 137 Potassium 4.0 Chloride 103 Carbon Dioxide 27 BUN 22 Creatinine 0.85 Glucose 108 H Calcium 9.6 Magnesium 2.1 Short CBC 12/18/18 12/17/18 Range/Units 07:05 14:12 WBC 8.7 7.9 (4.3-11.1) K/mcL Hgb 15.7 16.0 D (12.9-16.9) g/dL Hct 47.2 47.9 (37.5-50.1) % Plt Count 342 350 (140-400) K/mcL Neutrophils # 5.0 4.6 (1.6-8.9) K/mcL BMP 12/18/18 12/17/18 Range/Units 07:05 14:12 Sodium 137 136 (136-145) mEq/L Potassium 4.0 4.3 (3.5-5.1) mEq/L Chloride 103 101 (98-107) mEq/L Carbon Dioxide 27 22 L (23-29) mEq/L BUN 22 17 (8-23) mg/dL Creatinine 0.85 0.84 (0.70-1.30) mg/dL Glucose 108 H 154 H (70-105) mg/dL Calcium 9.6 9.8 (8.6-10.3) mg/dL Active Medications Acetaminophen (Tylenol) 650 mg PO Q6HR PRN PRN Reason: mild pain/fever Stop: 06/17/19 11:58 Last Admin: 12/17/18 07:53 Dose: 650 mg Documented by: Albuterol/Ipratropium (Duoneb) 3 ml IH [id number] PRN PRN Reason: Shortness Of Breath/Wheezing Stop: 06/17/19 03:55 Aspirin (Aspirin) 81 mg PO DAILY [facility] Stop: 06/17/19 09:01 Last Admin: 12/18/18 07:46 Dose: 81 mg Documented by: Atorvastatin Calcium (Lipitor) 40 mg PO HS ALESHIA Stop: 06/17/19 21:01 Last Admin: 12/17/18 21:56 Dose: 40 mg Documented by: Furosemide (Lasix) 40 mg IVP BIDDIURETIC ALESHIA Stop: 06/17/19 17:01 Last Admin: 12/18/18 07:46 Dose: 40 mg Documented by: Heparin Sodium (Porcine) (Heparin) 5,000 unit SQ Q8HCO ALESHIA Stop: 06/17/19 06:01 Last Admin: 12/18/18 13:46 Dose: 5,000 unit Documented by: Metoprolol Succinate (Toprol Xl) 25 mg PO DAILY ALESHIA Stop: 06/19/19 09:01 Last Admin: 12/18/18 07:46 Dose: 25 mg Documented by: - Imaging and Cardiology Echo: report reviewed Cardiac cath: report reviewed - EKG Interpretation EKG results cardiology: other (12 hr tele AVG HR 86, SR, NSVT longest 7 beats.) Consult Discharge Plan - Plan Additional Instructions: Please establish with a PCP within one week. Please follow-up with [facility] as scheduled. Please wear LifeVest as directed. Please take your medication as directed. Please return for any new or worsening symptoms. Referrals: Abdulaziz King DO [Non-Partnered Physician] - 12/24/18 1:45 pm Prescriptions: Aspirin 81 mg PO DAILY #30 tab.chew Furosemide [Lasix] 40 mg PO DAILY #30 tablet Atorvastatin [Lipitor] 40 mg PO HS #30 tablet Metoprolol XL (24 HR) Succ [Toprol Xl] 25 mg PO DAILY #30 tab.er.24h Lisinopril [Zestril] 5 mg PO DAILY #30 tablet
== END 2018-12-18 18:00 | disposition home or self-care (01) | DRG 192 ==
LOC: 2ANU → SUATTDRO 03:52
PROVIDERS: ADMIT Internal Medicine; ATTEND Internal Medicine

== ENCOUNTER 2020-06-08 21:48 | Observation (INO) ==
[2020-06-08] MEDS ORDERED: Naloxone 0.4 MG/ML INJ IVP PRN (23:43)
[2020-06-09 01:03] LABS: Hematocrit 37.1 % (37.5-50.1); Hemoglobin 11.7 g/dL (12.9-16.9); Mean Corpuscular HGB Conc 31.5 g/dL (31.6-35.5); Mean Corpuscular Hemoglobin 29.7 pg (28.0-33.3); Mean Corpuscular Volume 94.2 fL (83.0-100.0); Mean Platelet Volume 9.3 fL (9.4-12.4); Platelet Count 324 K/mcL (140-400); Red Blood Count 3.94 M/mcL (4.19-5.50); White Blood Count 9.5 K/mcL (4.3-11.1)
[2020-06-09 01:16] LABS: INR 1.3
[2020-06-09 01:18] LABS: Activated Partial Thrombo Time 63.6 Seconds (26.0-36.0)
[2020-06-09 01:20] LABS: Alanine Aminotransferase 25 Units/L (7-52); Albumin 3.7 g/dL (3.5-5.7); Albumin/Globulin Ratio 1.3 (1.1-2.2); Alkaline Phosphatase 118 Units/L (34-104); Aspartate Amino Transferase 18 Units/L (13-39); BUN/Creatinine Ratio 20 (6-26); Bilirubin,Total 0.4 mg/dL (0.3-1.0); Blood Urea Nitrogen 22 mg/dL (8-23); Calcium 8.4 mg/dL (8.6-10.3); Carbon Dioxide 26 mEq/L (23-29); Chloride 107 mEq/L (98-107); Globulin 2.9 g/dL (2.4-3.5); Glucose 68 mg/dL (70-105); Osmolality,Calculated 294 (280-300); Potassium 3.7 mEq/L (3.5-5.1); Sodium 141 mEq/L (136-145); Total Protein 6.6 g/dL (6.4-8.9); eGFR For African Americans > 60 (> 60); eGFR For Non-African Americans > 60 (> 60)
[2020-06-09] MEDS ORDERED: *HR* Heparin 5,000 UNIT/ML VIAL IVP PRN ×2 (02:55)
[2020-06-09] MEDS ORDERED: Perflutren Lipid Microsphere 1.3 ML in 0.9 % Sodium Chloride 8.7 ML IVP PRN ×2 (02:59→12:42)
[2020-06-09] MEDS ORDERED: Heparin 25,000UNIT/250ML 1/2NS 25,000 UNIT/250 ML IV.SOLN IVC SCH (03:00)
[2020-06-09 08:01] LABS: Troponin I 0.27 ng/mL (< 0.04)
[2020-06-09] MEDS ORDERED: Furosemide 40 MG/4 ML VIAL IVP SCH (09:00)
[2020-06-09] MEDS: Aspirin 81 MG TAB.CHEW PO SCH (09:15)
[2020-06-09] MEDS: lisinopriL 5 MG TABLET PO SCH (09:15)
[2020-06-09] MEDS: Metoprolol XL (24 HR) Succ 25 MG TAB.ER.24H PO SCH (12:03)
[2020-06-09] MEDS: Furosemide 40 MG/4 ML VIAL IVP SCH (20:26)
[2020-06-10] MEDS ORDERED: *HR* Amiodarone 200 MG TABLET PO SCH (09:30)
[2020-06-10] MEDS: lisinopriL 5 MG TABLET PO SCH (09:47)
[2020-06-10] MEDS: Metoprolol XL (24 HR) Succ 25 MG TAB.ER.24H PO SCH (09:47)
[2020-06-10] MEDS: Aspirin 81 MG TAB.CHEW PO SCH (09:47)
[2020-06-10] MEDS: Furosemide 40 MG/4 ML VIAL IVP SCH (09:48)
[2020-06-10] MEDS ORDERED: Ondansetron 4 MG/2 ML VIAL IVP ONE (09:57)
[2020-06-10 11:59] LABS: Chol/HDL Ratio 2.2 (0-4.9)
[2020-06-10 13:50] LABS: Estimated Average Glucose 126 mg/dl
[2020-06-10 14:32] VITALS: BP 110/76
== END 2020-06-10 16:09 | disposition other institution (70) ==
LOC: 3ANU → SUATTDRO 23:21 → 3BNU 23:31
PROVIDERS: ADMIT Student in an Organized Health Care Education/Training Program; ATTEND Internal Medicine